=== PATIENT | female | born 1950 | race Caucasian/White ===

== ENCOUNTER 2016-11-29 01:51 | Emergency (ER) | payer MEDICARE ==
--- NOTE | 2016-11-29 03:09 | ED Physician Documentation ---
PD HPI HEENT - Stated complaint Stated Complaint: TOOTHACHE - Chief complaint Chief Complaint: Heent - History obtained from History obtained from: Patient - History of Present Illness Timing - onset: How many weeks ago (1-2) Timing - details: Intermittant Location: Tooth Improves: Nothing Worsens: Other (chewing) Recently seen: Emergency Dept (6 ED visits last month) - Additional information Additional information: patient complains of 1 to 2 weeks of dental pain. She says she was recently written a prescription for an antibiotic by a physician at a recent [facility] emergency department visit. She says that her daughter threw out this prescription, and that it was for an antibiotic. Patient does not know which antibiotic. Patient says because of a recent insurance change, she is having difficulty getting a dental appointment. She is requesting an antibiotic prescription, and specifically tells me she does not want pain medication. 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 HEENT: Tonsil/Adenoidectomy - Present Medications Home Medications: Ambulatory Orders Medication Instructions Recorded Confirmed FLUoxetine [PROzac] 60 mg PO DAILY 08/18/13 09/20/15 Azithromycin [Zithromax] 250 mg PO DAILY #6 tablet 09/20/15 Fluticasone [Flonase] 1 sprays RAO BID PRN #1 bottle 09/20/15 Amoxicillin 500 mg PO BID #9 capsule 11/29/16 - Allergies Allergies/Adverse Reactions: Allergies Allergy/AdvReac Type Severity Reaction Status Date / Time No Known Drug Allergies Allergy Verified 11/29/16 01:54 - Social History Does the pt smoke?: Yes Smoking Status: Current every day smoker Does the pt drink ETOH?: No Does the pt have substance abuse?: Yes - Immunizations Immunizations are current?: No - POLST Patient has POLST: No PD ED PE NORMAL - Vitals Vital signs reviewed: Yes - General General: Alert and oriented X 3, No acute distress, Well developed/nourished - HEENT HEENT: Moist mucous membranes PD ED PE EXPANDED - HEENT HEENT: Dental decay, Other (dentition is poor with extensive attrition. There is tenderness to percussion of the right maxillary first and second molars.) Results - Vitals Vitals: Vital Signs - 24 hr 11/29/16 11/29/16 01:54 03:24 Temperature 36.4 C L Heart Rate 91 80 Respiratory 16 17 Rate Blood Pressure 131/81 H 133/89 H O2 Saturation 98 98 Oxygen O2 Source Room air PD MEDICAL DECISION MAKING - ED course Complexity details: considered differential, d/w patient Departure - Departure Disposition: 01 Home, Self Care Clinical Impression: Pain, dental Condition: Good Instructions: ED Tooth Pain Prescriptions: Amoxicillin 500 mg PO BID #9 capsule Discharge Date/Time: 11/29/16 03:25
[2016-11-29] MEDS ORDERED: AMOXICILLIN 250 MG CAPSULE PO STA (03:17)
[2016-11-29] MEDS ORDERED: AMOXICILLIN 250 MG CAPSULE PO ONE (03:17)
[2016-11-29 03:26] VITALS: BP 133/89
--- NOTE | 2016-12-01 17:37 | ED Physician Documentation ---
ED Addendum - Addendum Addendum: 12/01/16 17:37 Patient lost the prescription, refill for amoxicillin, 500 mg 3 times a day #30 was given.
== END 2016-11-29 03:25 | disposition home or self-care (01) ==
LOC: ED 01:51
DX: K08.89 Other specified disorders of teeth and supporting structures (principal); K02.9 Dental caries, unspecified; F17.200 Nicotine dependence, unspecified, uncomplicated
CPT/HCPCS: 99283; A9270

== ENCOUNTER 2016-12-09 23:44 | Outpatient (CLI) | payer MEDICARE | END 2016-12-09 23:45 | disposition critical access hospital (66) | LOC: EMS 23:44 | PROVIDERS: ATTEND Surgery | DX: M25.569 Pain in unspecified knee (principal); B86 Scabies | CPT/HCPCS: A0425; A0429 ==

== ENCOUNTER 2016-12-09 23:53 | Emergency (ER) | payer MEDICARE ==
--- NOTE | 2016-12-09 23:53 | ED Physician Documentation ---
History of Present Illness - Stated complaint Stated Complaint: SCABIES/KNEE PN - History obtained from History obtained from: Patient, EMS - History of Present Illness Timing: Chronic - Additonal information Additional information: Patient c/o scabies which has been ongoing for months. Also c/o joint problems ( hands, knees) due to arthritis; this is a chronic problem for her. Review of Systems Cardiac: denies: Chest pain / pressure Respiratory: denies: Dyspnea Skin: reports: Rash Musculoskeletal: reports: Joint pain (multiple joints, chronic) PD PAST MEDICAL HISTORY - Past Medical History Past Medical History: Yes Other Past Medical History: scabies, arthritis - Present Medications Home Medications: Ambulatory Orders Medication Instructions Recorded Confirmed FLUoxetine [PROzac] 60 mg PO DAILY 08/18/13 09/20/15 Azithromycin [Zithromax] 250 mg PO DAILY #6 tablet 09/20/15 Fluticasone [Flonase] 1 sprays RAO BID PRN #1 bottle 09/20/15 Amoxicillin 500 mg PO BID #9 capsule 11/29/16 - Allergies Allergies/Adverse Reactions: Allergies Allergy/AdvReac Type Severity Reaction Status Date / Time No Known Drug Allergies Allergy Verified 11/29/16 01:54 PD ED PE NORMAL - Vitals Vital signs reviewed: Yes - General General: Alert and oriented X 3, No acute distress, Well developed/nourished - HEENT HEENT: Atraumatic, Moist mucous membranes - Neuro Neuro: Alert and oriented X 3 PD ED PE EXPANDED - Derm Derm: Other (erythematous papules, tracking: BUE, BLE) - Psych Psych: Other (tangential) Results - Vitals Vitals: Vital Signs - 24 hr 12/09/16 12/09/16 23:53 23:59 Temperature 36.7 C Heart Rate 64 Respiratory 18 Rate Blood Pressure 151/99 H O2 Saturation 97 Oxygen O2 Source Room air PD MEDICAL DECISION MAKING - ED course Complexity details: reviewed old records, considered differential, d/w patient ED course: Patient gives tangential answers and consistently has to be refocused to the question being asked or the topic being discussed. After my conversation with her, it was still not clear why she came to ED tonight. I asked her several times what I can do for her as an emergency physician, and she cannot provide any clear or consistent answers. She seems predominantly concerned with her ongoing scabies, but says she has several doses of permethrin as well as PO medication ( ED records indicate Ivermectin). When I discussed the typical efficacy of permethrin, she says she lives in a hotel and she believes the problem has to do with not having clean sheets and the laundry room being too far for her. I offered to write rx for permethrin, but, again, she insists she has "plenty of that stuff already" (per patient). ED note from her most recent visit there (12/02/16) indicates, in the HPI, that patient had, at that time, 2 unfilled prescriptions for permethrin, and that she has been seen at ED twice in October for scabies. This patient's JUDIE form indicates this is her 16th ED visit (combining [facility] and ED) over past 12 months. 6 ED visits last month (Oct, 2016) and 4 ED visits this month ([address] [facility] ED, 2 to ED). Departure - Departure Disposition: 01 Home, Self Care Clinical Impression: Scabies, Arthritis Condition: Good Instructions: ED Scabies Follow-Up: Andreina García MD [Provider Admit Priv/Credential] - Comments: You have indicated to me that you still have medications for your scabies. When used correctly as prescribed, the permethrin cream has the greatest effectiveness when compared to other treatments for scabies. Treatment failures are usually related to inadequate washing of towels, sheets, and clothing at the time of use of the permethrin. You have indicated to me that you have some difficulties with this step of the process, but, unfortunately, there is nothing I can do regarding this step. The other problems you are describing, such as arthritis, are best addressed by your primary care physician and not in the emergency department. Please contact your primary care physician in the morning to arrange for next available appointment. Discharge Date/Time: 12/10/16 00:20
[2016-12-09 23:58] VITALS: BP 151/99
== END 2016-12-10 00:20 | disposition home or self-care (01) ==
LOC: EDUNIT# → ED 23:53
DX: B86 Scabies (principal); M19.90 Unspecified osteoarthritis, unspecified site
CPT/HCPCS: 99283

== ENCOUNTER 2017-01-17 10:41 | Outpatient (CLI) | payer MEDICARE | END 2017-01-17 10:42 | disposition critical access hospital (66) | LOC: EMS 10:41 | PROVIDERS: ATTEND Surgery | DX: M25.511 Pain in right shoulder (principal); M25.562 Pain in left knee; M25.561 Pain in right knee; W01.0XXA Fall on same level from slipping, tripping and stumbling without subsequent striking against object, initial encounter; Y93.01 Activity, walking, marching and hiking; Y92.481 Parking lot as the place of occurrence of the external cause | CPT/HCPCS: A0425; A0429 ==

== ENCOUNTER 2017-01-17 10:58 | Emergency (ER) | payer MEDICARE ==
--- NOTE | 2017-01-17 12:15 | ED Physician Documentation ---
PD HPI UPPER EXT INJURY - Stated complaint Stated Complaint: FALL - Chief complaint Chief Complaint: Ext Problem - History obtained from History obtained from: Patient - History of Present Illness Location: Other (66-year-old woman, homeless, she was walking on the street today and tripped and fell forward injuring her right wrist and arm. She also hit her forehead but there was no loss of consciousness or headache. She is not anticoagulated. 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 : None HEENT: None Psych: Bipolar disorder, ADD/ADHD, Post traumatic stress disorder, Other Musculoskeletal: Other Derm: None Other Past Medical History: Arthritis, constipation - Past Surgical History 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 HEENT: Tonsil/Adenoidectomy - Present Medications Home Medications: Ambulatory Orders Medication Instructions Recorded Confirmed FLUoxetine [PROzac] 60 mg PO DAILY 08/18/13 01/17/17 Fluticasone [Flonase] 1 sprays RAO BID PRN #1 bottle 09/20/15 01/17/17 Dextroamphetamine/Amphetamine 20 mg PO TID 01/17/17 01/17/17 [Adderall 20 mg Tablet] HYDROcod/ACETAM 5/325 [[place] 5/325] 1 - 2 ea PO Q6H PRN #10 tablet 01/17/17 Ivermectin [Stromectol] 3 mg PO DAILY 01/17/17 01/17/17 - Allergies Allergies/Adverse Reactions: Allergies Allergy/AdvReac Type Severity Reaction Status Date / Time No Known Drug Allergies Allergy Verified 01/17/17 11:15 - Social History Does the pt smoke?: Yes Smoking Status: Current every day smoker Does the pt drink ETOH?: No Does the pt have substance abuse?: Yes - Immunizations Immunizations are current?: No - POLST Patient has POLST: No PD ED PE NORMAL - Vitals Vital signs reviewed: Yes - General General: Alert and oriented X 3, No acute distress - HEENT HEENT: PERRL, EOMI, Other (Very small hematoma right forehead, no tenderness) - Neck Neck: Supple, no meningeal sign, No bony TTP - Cardiac Cardiac: RRR, No murmur - Respiratory Respiratory: No respiratory distress, Clear bilaterally - Abdomen Abdomen: Non tender - Extremities Extremities: Other (Shallow abrasion over the top of the right shoulder with tenderness of the upper anterior glenohumeral joint. There are shallow skin tears over the dorsal right forearm and she has some tenderness and swelling at the wrist with mildly lost range of motion. Left upper extremity and lower extremities are nontender.) - Neuro Neuro: Alert and oriented X 3, Normal speech - Psych Psych: Normal mood, Normal affect Results - Vitals Vitals: Vital Signs - 24 hr 01/17/17 01/17/17 11:02 14:15 Temperature 36.5 C Heart Rate 76 68 Respiratory 18 20 Rate Blood Pressure 133/89 H 148/93 H O2 Saturation 97 97 Oxygen O2 Source Room air - Rads (name of study) Shoulder and R wrist XRs Radiology: EMP read contemporaneously (Shoulder neg, R scaphoid waist frx with distraction) Procedures - Splint (location) Right wrist Splint applied by: [employer] Type of splint: Fiberglass, Thumb spica Other: Patient tolerated well, No complications, Neurovascular intact PD MEDICAL DECISION MAKING - ED course ED course: After ground-level fall she has shoulder and wrist pain. She is found to have a right scaphoid waist fracture with distraction. Possibility of needing surgical intervention was discussed with her and follow-up with orthopedics was advised. She was placed in A thumb spica splint by the tech. Departure - Departure Disposition: 01 Home, Self Care Clinical Impression: Contusion of right arm Qualifiers: Encounter type: initial encounter Qualified Code(s): S40.021A - Contusion of right upper arm, initial encounter Fracture of scaphoid of right wrist Qualifiers: Encounter type: initial encounter Scaphoid bone location: middle third Fracture type: closed Fracture alignment: displaced Qualified Code(s): S62.021A - Displaced fracture of middle third of navicular [scaphoid] bone of right wrist , initial encounter for closed fracture Condition: Good Instructions: ED Sprain AC Joint, ED Sprain Wrist Follow-Up: [facility] [Provider Group] Prescriptions: HYDROcod/ACETAM 5/325 [[place] 5/325] 1 - 2 ea PO Q6H PRN #10 tablet PRN Reason: Pain Comments: Call the orthopedics office on Thursday for the next available appointment. Keep the splint on and dry until then, as discussed given that the fracture is displaced they may recommend surgery. Your blood pressure was elevated today on check into the emergency department. This does not mean that you have hypertension, it is a common phenomenon to come to the emergency department and have elevated blood pressure. I recommend that she see her primary care physician within the week to have it rechecked when you are feeling better. Discharge Date/Time: 01/17/17 14:15
--- NOTE | 2017-01-17 13:47 | XRAY Preliminary Report ---
Exam: XR Shoulder 3 View RT IMPRESSION: No fracture [facility] SITE ID: [id number]
--- NOTE | 2017-01-17 13:50 | XRAY Report ---
EXAM: RIGHT SHOULDER RADIOGRAPHY EXAM DATE: 01/17/2017 01:03 PM. CLINICAL HISTORY: Wrist/shoulder pain p fall. COMPARISON: Jusitne comparison made with right humerus radiograph of 02/28/2014. TECHNIQUE: 3 views. FINDINGS: Bones and joints: Motion artifact mildly degrades images. There is mild glenohumeral and acromioclavi cular osteoarthritis. No fracture. Soft tissues: The visualized hemithorax is unremarkable. No soft tissue swelling. IMPRESSION: No fracture [facility] Referring Provider Line: [phone] SITE ID: [id number]
--- NOTE | 2017-01-17 13:51 | XRAY Preliminary Report ---
Exam: XR Wrist 4 View RT IMPRESSION: Distracted right scaphoid waist fracture [facility] SITE ID: [id number]
--- NOTE | 2017-01-17 13:53 | XRAY Report ---
EXAM: RIGHT WRIST RADIOGRAPHY EXAM DATE: 01/17/2017 01:04 PM. CLINICAL HISTORY: Wrist/shoulder pain p fall. COMPARISON: None. TECHNIQUE: 4 views. FINDINGS: Bones: There is a comminuted scaphoid waist fracture, distracted by 4 mm.. Joints: Severe first carpometacarpal osteoarthritis. Soft Tissues: Moderate soft tissue swelling about the wrist IMPRESSION: Distracted right scaphoid waist fracture [facility] Referring Provider Line: [phone] SITE ID: [id number]
[2017-01-17 14:17] VITALS: BP 148/93
== END 2017-01-17 14:15 | disposition home or self-care (01) ==
LOC: EDUNIT# → ED 10:58
DX: S62.021A Displaced fracture of middle third of navicular [scaphoid] bone of right wrist, initial encounter for closed fracture (principal); S50.12XA Contusion of left forearm, initial encounter; W01.0XXA Fall on same level from slipping, tripping and stumbling without subsequent striking against object, initial encounter; Y93.01 Activity, walking, marching and hiking; Y92.488 Other paved roadways as the place of occurrence of the external cause; Z59.0 Homelessness; M19.90 Unspecified osteoarthritis, unspecified site; F17.200 Nicotine dependence, unspecified, uncomplicated; R03.0 Elevated blood-pressure reading, without diagnosis of hypertension
CPT/HCPCS: 29125; 99282; 99283

== ENCOUNTER 2017-01-23 10:02 | Emergency (ER) | payer MEDICARE ==
--- NOTE | 2017-01-23 11:23 | ED Physician Documentation ---
PD HPI SKIN - Stated complaint Stated Complaint: RASH/BLISTERS ALL OVER - Chief complaint Chief Complaint: Heent - History obtained from History obtained from: Patient - History of Present Illness Timing - duration: Months Timing - details: Still present Location: [place] Quality / character: Itchy Associated symptoms: No: Fever Contributing factors: Other (homelessness) Similar symptoms before: Diagnosis (Treated for scabies in June 2016.) Recently seen: Emergency Dept (She was seen here 6 days ago for evaluation after falling.) - Additional information Additional information: The patient is a 66-year-old homeless female who presents with itchy rash that has been getting progressively worse over several days to weeks. She was treated for scabies in June 2016, and states this is a recurrent episode. Review of her medical record reveals that she was seen here 6 days ago after falling on the street, and was evaluated for injuries involving her right upper extremity. She was treated with a thumb spica splint for a suspected scaphoid fracture of her right wrist. However, she states that in follow-up with the orthopedic surgeon she was told the wrist is not fractured. 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 : None HEENT: None Psych: Bipolar disorder, ADD/ADHD, Post traumatic stress disorder, Other Musculoskeletal: Other Derm: None - Past Surgical History 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 01/23/17 - Allergies Allergies/Adverse Reactions: Allergies Allergy/AdvReac Type Severity Reaction Status Date / Time No Known Drug Allergies Allergy Verified 01/17/17 11:15 - Living Situation Living Arrangement: reports: Homeless - Social History Does the pt smoke?: Yes Smoking Status: Current every day smoker Does the pt drink ETOH?: No Does the pt have substance abuse?: Yes - Immunizations Immunizations are current?: No - POLST Patient has POLST: No PD ED PE NORMAL - Vitals Vital signs reviewed: Yes (Initially hypertensive.) - General General: Alert and oriented X 3, Well developed/nourished, Other (Scratching at her arms.) - HEENT HEENT: Atraumatic - Neck Neck: No adenopathy - Cardiac Cardiac: RRR - Respiratory Respiratory: No respiratory distress - Derm Derm: Other ([place] in the webspaces of the fingers and the flexion creases of the wrists, as well as up the forearms and on the lower legs bilaterally, consistent with scabies. There is no evidence of cellulitis.) - Extremities Extremities: No: No edema Results - Vitals Vitals: Oxygen O2 Source Room air PD MEDICAL DECISION MAKING - ED course Complexity details: reviewed old records, considered differential, d/w patient ED course: The patient's presentation is consistent with scabies. She is being discharged with prescription for permethrin cream, with refill prescribed if needed for repeat treatment. I discussed with her the expected course of illness, the importance of outpatient follow-up, as well as potentially worrisome signs or symptoms that should prompt reevaluation in the emergency department. Departure - Departure Disposition: 01 Home, Self Care Clinical Impression: Scabies Condition: Stable Instructions: ED Scabies Follow-Up: Andreina García MD [Primary Care Provider] - Prescriptions: Permethrin 5% Cream [(None)] 60 gm TP ONCE #60 cream..g. Comments: Apply Permethrin cream as directed by package insert. Wash your clothing and bedding. Follow up with your primary physician within one week. Return to the emergency department if increasing rash, or otherwise worsening symptoms. Discharge Date/Time: 01/23/17 11:41
[2017-01-23 11:44] VITALS: BP 127/89
== END 2017-01-23 11:41 | disposition home or self-care (01) ==
LOC: ED 10:02
DX: B86 Scabies (principal); Z59.0 Homelessness; F17.200 Nicotine dependence, unspecified, uncomplicated
CPT/HCPCS: 99283

== ENCOUNTER 2017-01-27 21:10 | Outpatient (CLI) | payer MEDICARE | END 2017-01-27 21:11 | disposition critical access hospital (66) | LOC: EMS 21:10 | PROVIDERS: ATTEND Surgery | DX: F32.9 Major depressive disorder, single episode, unspecified (principal) | CPT/HCPCS: A0425; A0429 ==

== ENCOUNTER 2017-01-27 21:25 | Emergency (ER) | payer MEDICARE ==
[2017-01-27] MEDS ORDERED: OLANZapine 10 MG VIAL IM STA (21:33)
[2017-01-27] MEDS ORDERED: SODIUM CHLORIDE 0.9% 1,000 ML IV ONE (21:35)
[2017-01-27] MEDS ORDERED: LORazepam 2 MG/ML SYRINGE IVP STA ×2 (21:35→22:26)
[2017-01-27] MEDS ORDERED: OLANZapine 10 MG VIAL IM ONE (21:38)
[2017-01-27] MEDS ORDERED: WATER FOR INJECTION,STERILE 10 ML ONE (21:39)
[2017-01-27] MEDS ORDERED: LORazepam 2 MG/ML SYRINGE ONE ×2 (21:56→22:39)
[2017-01-27] MEDS ORDERED: SODIUM CHLORIDE FLUSH 0.9% 10 ML SYRINGE IVP ONE (21:56)
[2017-01-27 22:05] LABS: BASOPHILS # (AUTO) 0.1 10^3/uL (0.0-0.1); BASOPHILS % (AUTO) 1.3 %; EOSINOPHILS # (AUTO) 0.7 10^3/uL (0.0-0.7); EOSINOPHILS % (AUTO) 10.2 %; HCT - HEMATOCRIT 38.2 % (37.0-47.0); HGB - HEMOGLOBIN 12.6 g/dL (12.0-16.0); LYMPHOCYTES # (AUTO) 2.5 10^3/uL (1.5-3.5); LYMPHOCYTES % (AUTO) 35.1 %; MEAN CORPUSCULAR HEMOGLOBIN 30.2 pg (27.0-31.0); MEAN CORPUSCULAR VOLUME 91.4 fL (81.0-99.0); MEAN PLATELET VOLUME 8.9 fL (7.9-10.8); MONOCYTES # (AUTO) 0.5 10^3/uL (0.0-1.0); MONOCYTES % (AUTO) 7.6 %; NEUTROPHILS # (AUTO) 3.3 10^3/uL (1.5-6.6); NEUTROPHILS % (AUTO) 45.8 %; RED BLOOD COUNT 4.18 10^6/uL (4.20-5.40); RED CELL DISTRIBUTION WIDTH 13.8 % (12.0-15.0); UNCORRECTED WHITE BLOOD COUNT 7.2 x10^3/uL; WHITE BLOOD COUNT 7.2 x10^3/uL (4.8-10.8)
--- NOTE | 2017-01-27 22:05 | ED Physician Documentation ---
History of Present Illness - Stated complaint Stated Complaint: MHE - Chief complaint Chief Complaint: MHE - Additonal information Additional information: Patient is a 66-year-old female with history of PTSD and bipolar disorder. Looking at her medication list she apparently takes Adderall and Prozac. Apparently the patient is also homeless. I am unaware of any substance abuse issues other than the prescribed Adderall. The patient is brought in by EMS for psychiatric evaluation. She was found at a hotel in [place] creating a disturbance. The brief report I got was at the patient was running around hotel completely naked yelling and screaming at the top of her voice. The patient was uneventfully transferred from a hotel to your facility and she was agreeable to covering herself with her sheet. The patient was reticent to do lay down on the bed. Her speech was pressured and she exhibited flight of ideas and had delusions of persecution from police, the government, and attorneys. The patient's extreme behavior necessitated the temporary use of restraints. He called the police who assisted us in getting the patient into the bed uneventfully. At that point she was given a IM dose of Zyprexa 10 mg and restrained physically. Review of systems: For pertinent positive and negatives in the review of systems please see the history of present illness, otherwise all other systems have been reviewed and are negative. Dragon disclaimer: Parts of this medical record were created using voice recognition technology. Because of the inherent limitations of this system, occasional same sounding word substitutions do occur and persist despite proofreading. Please read the document for context. Review of Systems Psychiatric: reports: Hallucinations, Delusions, Insomnia PD PAST MEDICAL HISTORY - Past Medical History Cardiovascular: None Respiratory: Pneumonia Neuro: None Endocrine/Autoimmune: None GI: None CLINICAL PROGRAMMER: None : None HEENT: None Psych: Bipolar disorder, ADD/ADHD, Post traumatic stress disorder, Other Musculoskeletal: Other Derm: None - Past Surgical History Past Surgical History: Yes /CLINICAL PROGRAMMER: section HEENT: Tonsil/Adenoidectomy - Present Medications Home Medications: Ambulatory Orders Medication Instructions Recorded Confirmed FLUoxetine [PROzac] 60 mg PO DAILY 08/18/13 01/23/17 Fluticasone [Flonase] 1 sprays RAO BID PRN #1 bottle 09/20/15 01/23/17 Dextroamphetamine/Amphetamine 20 mg PO TID 01/17/17 01/23/17 [Adderall 20 mg Tablet] HYDROcod/ACETAM 5/325 [[place] 5/325] 1 - 2 ea PO Q6H PRN #10 tablet 01/17/1705/01 Ivermectin [Stromectol] 3 mg PO DAILY 01/17/17 01/23/17 Permethrin 5% Cream [(None)] 60 gm TP ONCE #60 cream..g. 01/23/17 - Allergies Allergies/Adverse Reactions: Allergies Allergy/AdvReac Type Severity Reaction Status Date / Time No Known Drug Allergies Allergy Verified 01/27/17 21:30 - Social History Does the pt smoke?: Yes Smoking Status: Current every day smoker Does the pt drink ETOH?: No Does the pt have substance abuse?: Yes - Immunizations Immunizations are current?: No - POLST Patient has POLST: No PD ED PE NORMAL - General General: Alert and oriented X 3, No acute distress, Well developed/nourished, Other (Large habitus female with tall stature) - HEENT HEENT: Atraumatic, PERRL, Pharynx benign, Dentition benign - Cardiac Cardiac: RRR, No murmur, No gallop, No rub - Respiratory Respiratory: No respiratory distress, Clear bilaterally - Abdomen Abdomen: Normal bowel sounds, Soft, Non tender, Non distended - Derm Derm: Normal color, Warm and dry - Extremities Extremities: No deformity, No tenderness to palpate, Normal ROM s pain, No edema , No calf tenderness / cord, Other - Neuro Neuro: Alert and oriented X 3, No motor deficit, No sensory deficit Results - Vitals Vitals: Vital Signs - 24 hr 01/27/17 01/27/17 01/27/17 22:00 22:11 22:32 Temperature 36.7 C Heart Rate 75 76 76 Respiratory 18 18 14 Rate Blood Pressure 130/75 113/62 133/83 H O2 Saturation 96 98 99 01/27/17 01/27/17 01/27/17 23:13 23:45 23:56 Temperature Heart Rate 77 78 76 Respiratory 20 19 16 Rate Blood Pressure 124/75 140/76 H 134/82 H O2 Saturation 95 95 97 01/28/17 01/28/17 01/28/17 02:39 04:54 06:31 Temperature Heart Rate 73 76 76 Respiratory 13 16 17 Rate Blood Pressure 143/110 H 130/86 H 138/78 H O2 Saturation 100 99 100 Oxygen O2 Source Room air - Labs Labs: Laboratory Tests 01/27/17 01/27/17 01/27/17 21:58 21:58 22:20 WBC 7.2 RBC 4.18 L Hgb 12.6 Hct 38.2 MCV 91.4 MCH 30.2 MCHC 33.0 RDW 13.8 Plt Count 232 MPV 8.9 Neut # 3.3 Lymph # 2.5 Gregg # 0.5 Eos # 0.7 Baso # 0.1 Absolute Nucleated RBC 0.00 Nucleated RBCs 0.0 Sodium 140 Potassium 4.9 Chloride 104 Carbon Dioxide 28 Anion Gap 8.0 BUN 14 Creatinine 0.7 Estimated GFR (MDRD) 83 L Glucose 121 H Calcium 10.4 H Total Bilirubin 0.4 AST 37 ALT 30 Alkaline Phosphatase 98 Total Protein 6.9 Albumin 4.2 Globulin 2.7 Albumin/Globulin Ratio 1.6 Lipase 27 Urine Color YELLOW Urine Clarity CLEAR Urine pH 6.0 Ur Specific [place] 1.025 Urine Protein NEGATIVE Urine Glucose (UA) NEGATIVE Urine Ketones NEGATIVE Urine Occult Blood NEGATIVE Urine Nitrite NEGATIVE Urine Bilirubin NEGATIVE Urine Urobilinogen 0.2 (NORMAL) Ur Leukocyte Esterase NEGATIVE Ur Microscopic Review NOT INDICATED Urine Culture Comments NOT INDICATED Salicylates < 6.0 Urine Opiates Screen NEGATIVE Ur Oxycodone Screen NEGATIVE Urine Methadone Screen NEGATIVE Ur Propoxyphene Screen NEGATIVE Acetaminophen < 10 L Ur Barbiturates Screen NEGATIVE Ur Tricyclics Screen NEGATIVE Ur Phencyclidine Scrn NEGATIVE Ur Amphetamine Screen POSITIVE H U Methamphetamines Scrn NEGATIVE U Benzodiazepines Scrn NEGATIVE Urine Cocaine Screen NEGATIVE U Cannabinoids Screen NEGATIVE Ethyl Alcohol < 5.0 PD MEDICAL DECISION MAKING - ED course Complexity details: re-evaluated patient ED course: This patient is a severely ill 66-year-old female brought in after she was found to the local hotel where she was found nude running around screaming.. The patient was equally disturbed. Her speech is very pressured with pressured speech and behavior consistent with acute bowen. The severity of her presentation necessitated physical and chemical restraint. She was given Zyprexa and 2 mg of Ativan liter fluid and has been watched here overnight. She did sleep for a couple hours but on waking up this morning she still appears manic. This patient will likely need inpatient admission to psychiatry facility. We tried to loosen the restraints several times over night but were partly but were not successful because of continued agitation. From a laboratory standpoint all her labs are normal. Her tox screens are positive for amphetamines but she is on Adderall chronically. Disposition transfer to psychiatric hospital new Clinical impression: 1. Acute bowen
[2017-01-27 22:20] LABS: ALBUMIN/GLOBULIN RATIO 1.6 (1.0-2.2); BILIRUBIN,TOTAL 0.4 mg/dL (0.2-1.0); BUN - BLOOD UREA NITROGEN 14 mg/dL (6-20); CALCIUM 10.4 mg/dL (8.5-10.3); CARBON DIOXIDE - CO2 28 mmol/L (21-32); CHLORIDE 104 mmol/L (101-111); CREATININE 0.7 mg/dL (0.4-1.0); GFR - MDRD 83 (>89); GLUCOSE 121 mg/dL (70-100); LIPASE 27 U/L (22-51); POTASSIUM 4.9 mmol/L (3.5-5.0); SALICYLATE < 6.0 mg/dL; SODIUM 140 mmol/L (135-145); TOTAL PROTEIN 6.9 g/dL (6.7-8.2)
[2017-01-27 22:21] LABS: ACETAMINOPHEN < 10 ug/mL (10-30)
[2017-01-27 22:28] LABS: BILIRUBIN,URINE NEGATIVE (NEGATIVE)
[2017-01-27 22:31] LABS: UA CHARGE (STRIP ONLY) YES; UR CULTURE IF IND NOT INDICATED
[2017-01-28] MEDS ORDERED: LORazepam 2 MG/ML SYRINGE IVP STA (13:58)
[2017-01-28] MEDS ORDERED: HALOPERIDOL 5 MG/ML VIAL IVP ONE (13:58)
[2017-01-28] MEDS ORDERED: LORazepam 2 MG/ML SYRINGE ONE (14:03)
[2017-01-28] MEDS ORDERED: HALOPERIDOL 5 MG/ML VIAL ONE (14:03)
[2017-01-28] MEDS ORDERED: KETAMINE 500 MG/10 ML VIAL IVP STA ×2 (14:39→18:37)
--- NOTE | 2017-01-28 14:42 | ED Physician Documentation ---
ED Addendum - Addendum Addendum: 01/28/17 14:41 On my arrival for shift today the [facility], Beena was here evaluating her. Patient was intermittently very agitated. Initially was responding to verbal de- escalation, but started fighting the restraints and needed some chemical sedation. Initially given Ativan 1 mg and Haldol 5 mg IV. About half an hour later this had really no effect on her and her agitation was continuing to increase. She was administered ketamine 100 mg IV. 01/28/17 17:46 [facility] arranged for a bed in [facility] completed, She did require a second dose of ketamine for recurrent agitation prior to transfer. Critical care time 48 minutes with frequent airway checks and close monitoring because of the volume of medications needed for behavioral agitation. Disposition transfer to psychiatric facility diagnosis psychosis
[2017-01-28] MEDS ORDERED: KETAMINE 500 MG/10 ML VIAL ONE ×2 (14:43→18:48)
[2017-01-28 19:24] VITALS: BP 156/90
== END 2017-01-28 19:11 ==
LOC: EDUNIT# → EDBD → ED 21:25
DX: F30.9 Manic episode, unspecified (principal); F31.9 Bipolar disorder, unspecified; F43.10 Post-traumatic stress disorder, unspecified; Z59.0 Homelessness; F17.200 Nicotine dependence, unspecified, uncomplicated
CPT/HCPCS: 36415; 51701; 80053; 80306; 80307; 81003; 83690; 85025; 93005; 96372; 96374; 96375; 96376; 99285; 99291; G0480; J2060; 80320; 80329; 81001; 87086

== ENCOUNTER 2017-02-26 02:27 | Outpatient (CLI) | payer MEDICARE | END 2017-02-26 02:28 | disposition critical access hospital (66) | LOC: EMS 02:27 | PROVIDERS: ATTEND Surgery | DX: R46.89 Other symptoms and signs involving appearance and behavior (principal) | CPT/HCPCS: A0425; A0429 ==

== ENCOUNTER 2017-02-26 02:39 | Emergency (ER) | payer MEDICARE ==
--- NOTE | 2017-02-26 04:10 | ED Physician Documentation ---
History of Present Illness - Stated complaint Stated Complaint: OFF MEDS, REFUSING TO LEAVE [facility] - Chief complaint Chief Complaint: MHE - History obtained from History obtained from: Patient, EMS - History of Present Illness Timing: Today Pain level now: 0 - Additonal information Additional information: patient reportedly was in [facility] yelling and loudly making racially and culturally insensitive remarks, and refused to leave when asked to. police arrived and they recommended transport to hospital as there was a concern she has not been taking her medications Review of Systems Constitutional: reports: Reviewed and negative Cardiac: reports: Reviewed and negative Respiratory: reports: Reviewed and negative GI: reports: Reviewed and negative Psychiatric: reports: Insomnia. denies: Depressed, Suicidal, Homicidal, Hallucinations, Delusions, Anxiety PD PAST MEDICAL HISTORY - Past Medical History Past Medical History: Yes Cardiovascular: None Respiratory: Pneumonia Neuro: None Endocrine/Autoimmune: None GI: None TRANSMISSION BUILDER: None : None HEENT: None Psych: Bipolar disorder, ADD/ADHD, Post traumatic stress disorder, Other Musculoskeletal: Other Derm: None - Past Surgical History Past Surgical History: Yes /TRANSMISSION BUILDER: section HEENT: Tonsil/Adenoidectomy - Present Medications Home Medications: Ambulatory Orders Medication Instructions Recorded Confirmed FLUoxetine [PROzac] 60 mg PO DAILY 08/18/13 02/26/17 Fluticasone [Flonase] 1 sprays RAO BID PRN #1 bottle 09/20/15 02/26/17 Dextroamphetamine/Amphetamine 20 mg PO TID 01/17/17 02/26/17 [Adderall 20 mg Tablet] HYDROcod/ACETAM 5/325 [[place] 5/325] 1 - 2 ea PO Q6H PRN #10 tablet 01/17/17 Ivermectin [Stromectol] 3 mg PO DAILY 01/17/17 02/26/17 Permethrin 5% Cream [(None)] 60 gm TP ONCE #60 cream..g. 01/23/17 02/26/17 - Allergies Allergies/Adverse Reactions: Allergies Allergy/AdvReac Type Severity Reaction Status Date / Time No Known Drug Allergies Allergy Verified 02/26/17 02:47 - Social History Does the pt smoke?: Yes Smoking Status: Current every day smoker Does the pt drink ETOH?: No Does the pt have substance abuse?: Yes - Immunizations Immunizations are current?: No - POLST Patient has POLST: No PD ED PE NORMAL - Vitals Vital signs reviewed: Yes - General General: Alert and oriented X 3, No acute distress, Well developed/nourished - HEENT HEENT: PERRL, EOMI - Cardiac Cardiac: RRR, No murmur - Respiratory Respiratory: No respiratory distress, Clear bilaterally - Derm Derm: Normal color, Warm and dry Results - Vitals Vitals: Vital Signs - 24 hr 02/26/17 08:17 Temperature 36.4 C L Heart Rate 83 Respiratory 16 Rate Blood Pressure 107/78 O2 Saturation 98 Oxygen O2 Source Room air PD MEDICAL DECISION MAKING - ED course Complexity details: considered differential, d/w patient ED course: in ED, patient is unusually calm, cooperative, and able to hold a somewhat productive conversation. However, she does get tangential and often needs redirecting. She sometimes does not provide clear answers, usually a result of verbosity with poverty of content. specifically, I could not get her to explain whether she is supposed to be on medications and whether she is taking what she should be taking. she complains that no one will prescribe her Adderall, says her doctor wants her taking zyprexa but she cannot tolerate side effects. she mentions, briefly, some recent substitutions of one medication for another, as well as being told to stop others. I consulted CATARINO to help determine whether she is taking meds appropriately and/or if she can be evaluated by one of her doctors that knows her medication list and can review this with her. CATARINO was able to arrange AM appointment with Dr. García Departure - Departure Disposition: 01 Home, Self Care Clinical Impression: Insomnia Condition: Good Instructions: ED Symptoms No Dx Follow-Up: Andreina García MD [Provider Admit Priv/Credential] - (Today as scheduled) Discharge Date/Time: 02/26/17 10:45
[2017-02-26 08:17] VITALS: BP 107/78
[2017-02-26] MEDS ORDERED: IBUPROFEN 600 MG TABLET PO STA (08:58)
[2017-02-26] MEDS ORDERED: IBUPROFEN 600 MG TABLET PO ONE (09:32)
== END 2017-02-26 10:45 | disposition home or self-care (01) ==
LOC: EDUNIT# → ED 02:39
DX: G47.00 Insomnia, unspecified (principal); F17.200 Nicotine dependence, unspecified, uncomplicated
CPT/HCPCS: 99283; A9270

== ENCOUNTER 2017-03-04 14:17 | Outpatient (CLI) | payer MEDICARE | END 2017-03-04 14:18 | disposition critical access hospital (66) | LOC: EMS 14:17 | PROVIDERS: ATTEND Surgery | DX: Z03.89 Encounter for observation for other suspected diseases and conditions ruled out (principal) | CPT/HCPCS: A0425; A0429 ==

== ENCOUNTER 2017-03-04 14:34 | Emergency (ER) | payer MEDICARE ==
[2017-03-04 14:56] VITALS: BP 155/88
[2017-03-04] MEDS ORDERED: OLANZapine ODT 5 MG TABLET TL ONE ×2 (18:10→18:17)
--- NOTE | 2017-03-04 18:12 | ED Physician Documentation ---
PD HPI MHE - Stated complaint Stated Complaint: MHE - Chief complaint Chief Complaint: MHE - History obtained from History obtained from: Patient - History of Present Illness Primary symptom: No: Suicidal ideation, Suicide attempt, Self harm - cut, Self harm - OD, Homicidal ideation Timing - onset: Chronic Pain level max: 0 Pain level now: 0 Contributing factors: Out of meds Recently seen: Not recently seen - Additional information Additional information: Patient is a 66-year-old female who states that she wanted a refill of her medications, because she forgot to go get them filled. Before I entered the room, she found them in her bag and would like to go get them filled. She currently does not have any complaints for me at this time. She states that she has a place to stay and will follow up with her doctor. Review of Systems Ten Systems: 10 systems reviewed and negative Constitutional: denies: Fever, Chills Nose: denies: Rhinorrhea / runny nose, Congestion Respiratory: denies: Cough GI: denies: Abdominal Pain, Nausea, Vomiting, Diarrhea Skin: denies: Rash Musculoskeletal: denies: Neck pain, Back pain Psychiatric: denies: Depressed, Suicidal, Homicidal, Hallucinations, Anxiety PD PAST MEDICAL HISTORY - Past Medical History Cardiovascular: None Respiratory: Pneumonia Neuro: None Endocrine/Autoimmune: None GI: None DIRECTOR COMMUNITY ORGANIZATION: None : None HEENT: None Psych: Bipolar disorder, ADD/ADHD, Post traumatic stress disorder, Other Musculoskeletal: Other Derm: None - Past Surgical History Past Surgical History: Yes /DIRECTOR COMMUNITY ORGANIZATION: section HEENT: Tonsil/Adenoidectomy - Present Medications Home Medications: Ambulatory Orders Medication Instructions Recorded Confirmed FLUoxetine [PROzac] 60 mg PO DAILY 08/18/13 02/26/17 Fluticasone [Flonase] 1 sprays RAO BID PRN #1 bottle 09/20/15 02/26/17 Dextroamphetamine/Amphetamine 20 mg PO TID 01/17/17 02/26/17 [Adderall 20 mg Tablet] HYDROcod/ACETAM 5/325 [[place] 5/325] 1 - 2 ea PO Q6H PRN #10 tablet 01/17/17 Ivermectin [Stromectol] 3 mg PO DAILY 01/17/17 02/26/17 Permethrin 5% Cream [(None)] 60 gm TP ONCE #60 cream..g. 01/23/17 02/26/17 - Allergies Allergies/Adverse Reactions: Allergies Allergy/AdvReac Type Severity Reaction Status Date / Time No Known Drug Allergies Allergy Verified 03/04/17 14:56 - Social History Does the pt smoke?: Yes Smoking Status: Current every day smoker Does the pt drink ETOH?: No Does the pt have substance abuse?: Yes - Immunizations Immunizations are current?: No - POLST Patient has POLST: No PD ED PE NORMAL - Vitals Vital signs reviewed: Yes - General General: Alert and oriented X 3, No acute distress - HEENT HEENT: Moist mucous membranes - Cardiac Cardiac: RRR - Respiratory Respiratory: No respiratory distress, Clear bilaterally - Abdomen Abdomen: Soft, Non tender, Non distended - Derm Derm: Warm and dry - Neuro Neuro: Alert and oriented X 3 - Psych Psych: Normal affect Results - Vitals Vitals: Oxygen O2 Source Room air PD MEDICAL DECISION MAKING - ED course Complexity details: d/w patient ED course: Patient found her prescriptions when she arrived in the emergency department and will go get them filled today. She has no acute emergency medical condition at this time. Not suicidal or homicidal. Patient will take the bus to the pharmacy. Patient counseled regarding signs and symptoms for which I believe and urgent re-evaluation would be necessary. Patient with good understanding of and agreement to plan and is comfortable going home at this time This document was made in part using voice recognition software. While efforts are made to proofread this document, sound alike and grammatical errors may occur. Departure - Departure Disposition: 01 Home, Self Care Clinical Impression: Psychiatric symptoms Condition: Good Instructions: ED Psychosis Follow-Up: your,doctor in 1 week [Other] Comments: Return if you worsen. Fill your prescriptions tonight. Your blood pressure was elevated today on check in to the emergency department. This does not mean that you have hypertension, it is a common phenomenon to check into the emergency department and have elevated blood pressure. I recommend that you see your primary care physician within the week to have it rechecked when you're feeling better. Discharge Date/Time: 03/04/17 18:25
== END 2017-03-04 18:25 | disposition home or self-care (01) ==
LOC: EDBD → EDUNIT# → ED 14:34
DX: F29 Unspecified psychosis not due to a substance or known physiological condition (principal); R03.0 Elevated blood-pressure reading, without diagnosis of hypertension
CPT/HCPCS: 99283; A9270; 80053; 80307; 80320; 80329; 83690; 85025

== ENCOUNTER 2017-03-05 17:24 | Outpatient (CLI) | payer MEDICARE | END 2017-03-05 17:25 | disposition critical access hospital (66) | LOC: EMS 17:24 | PROVIDERS: ATTEND Surgery | DX: R11.0 Nausea (principal); R42 Dizziness and giddiness | CPT/HCPCS: A0425; A0429 ==

== ENCOUNTER 2017-03-05 17:26 | Emergency (ER) | payer MEDICARE ==
[2017-03-05 17:39] VITALS: BP 143/79
--- NOTE | 2017-03-05 17:54 | ED Physician Documentation ---
History of Present Illness - Stated complaint Stated Complaint: SICK - Chief complaint Chief Complaint: General - History obtained from History obtained from: Patient - History of Present Illness Timing: Today Pain level max: 0 Pain level now: 0 - Additonal information Additional information: states she felt sick after smoking marijuana. States doesn't want care, just wants to go home and go to bed. Refuses any further history, exam or testing. Review of Systems Unable to obtain: Uncooperative PD PAST MEDICAL HISTORY - Past Medical History Cardiovascular: None Respiratory: Pneumonia Neuro: None Endocrine/Autoimmune: None GI: None CUPOLA CHARGER INSULATION: None : None HEENT: None Psych: Bipolar disorder, ADD/ADHD, Post traumatic stress disorder, Other Musculoskeletal: Other Derm: None - Past Surgical History Past Surgical History: Yes /CUPOLA CHARGER INSULATION: section HEENT: Tonsil/Adenoidectomy - Present Medications Home Medications: Ambulatory Orders Medication Instructions Recorded Confirmed FLUoxetine [PROzac] 60 mg PO DAILY 08/18/13 02/26/17 Fluticasone [Flonase] 1 sprays RAO BID PRN #1 bottle 09/20/15 02/26/17 Dextroamphetamine/Amphetamine 20 mg PO TID 01/17/17 02/26/17 [Adderall 20 mg Tablet] HYDROcod/ACETAM 5/325 [[place] 5/325] 1 - 2 ea PO Q6H PRN #10 tablet 01/17/17 Ivermectin [Stromectol] 3 mg PO DAILY 01/17/17 02/26/17 Permethrin 5% Cream [(None)] 60 gm TP ONCE #60 cream..g. 01/23/17 02/26/17 - Allergies Allergies/Adverse Reactions: Allergies Allergy/AdvReac Type Severity Reaction Status Date / Time No Known Drug Allergies Allergy Verified 03/04/17 14:56 - Social History Does the pt smoke?: Yes Smoking Status: Current every day smoker Does the pt drink ETOH?: No Does the pt have substance abuse?: Yes - Immunizations Immunizations are current?: No - POLST Patient has POLST: No PD ED PE NORMAL - Vitals Vital signs reviewed: Yes - General General: Alert and oriented X 3, No acute distress - HEENT HEENT: Moist mucous membranes - Neck Neck: Supple, no meningeal sign - Respiratory Respiratory: No respiratory distress - Derm Derm: Warm and dry - Neuro Neuro: Alert and oriented X 3 - Psych Psych: Normal mood Results - Vitals Vitals: Vital Signs - 24 hr 03/05/17 17:37 Temperature 35.6 C L Heart Rate 74 Respiratory 16 Rate Blood Pressure 143/79 H O2 Saturation 94 Oxygen O2 Source Room air PD MEDICAL DECISION MAKING - ED course Complexity details: considered differential, d/w patient ED course: Patient is a 66-year-old female who presents to the emergency department stating that she just wants to go home and go to bed. She does not want to be evaluated. Does not appear to be acutely psychotic at this time. No evidence of an acute emergency medical condition. Refuses any further evaluation. This document was made in part using voice recognition software. While efforts are made to proofread this document, sound alike and grammatical errors may occur. 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 Discharge Date/Time: 03/05/17 18:16
== END 2017-03-05 18:16 | disposition home or self-care (01) ==
LOC: EDUNIT# → ED 17:26
DX: F12.10 Cannabis abuse, uncomplicated (principal); F17.200 Nicotine dependence, unspecified, uncomplicated
CPT/HCPCS: 99282; 99283

== ENCOUNTER 2018-03-05 13:58 | Emergency (ER) | payer OTHER, MEDICARE ==
--- NOTE | 2018-03-05 14:07 | ED Physician Documentation ---
History of Present Illness - Stated complaint Stated Complaint: MHE - History obtained from History obtained from: Patient, Police - History of Present Illness Timing: Other (She presents accompanied by 's deputies. She has been in [facility] about a [facility] and [facility] and needs medical clearance for psychiatric evaluation. Her only complaint for me is ongoing neck pain on the left and she feels clicking in her neck when she moves. That has been going on for months or years. 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 SPECIALIST: None : None HEENT: None Psych: Bipolar disorder, ADD/ADHD, Post traumatic stress disorder, Other Musculoskeletal: Other Derm: None - Past Surgical History Past Surgical History: Yes /FLORAL DEPARTMENT SPECIALIST: section HEENT: Tonsil/Adenoidectomy - Present Medications Home Medications: Ambulatory Orders Medication Instructions Recorded Confirmed FLUoxetine [PROzac] 60 mg PO DAILY 08/18/13 02/26/17 Fluticasone [Flonase] 1 sprays RAO BID PRN #1 bottle 09/20/15 02/26/17 Dextroamphetamine/Amphetamine 20 mg PO TID 01/17/17 02/26/17 [Adderall 20 mg Tablet] HYDROcod/ACETAM 5/325 [[place] 5/325] 1 - 2 ea PO Q6H PRN #10 tablet 01/17/17 02/26/17 Ivermectin [Stromectol] 3 mg PO DAILY 01/17/17 02/26/17 Permethrin 5% Cream 60 gm TP ONCE #60 cream..g. 01/23/17 02/26/17 - Allergies Allergies/Adverse Reactions: Allergies Allergy/AdvReac Type Severity Reaction Status Date / Time No Known Drug Allergies Allergy Verified 03/04/17 14:56 - Social History Does the pt smoke?: Yes Smoking Status: Current every day smoker Does the pt drink ETOH?: No Does the pt have substance abuse?: Yes - Family History Family history: reports: Non contributory - Immunizations Immunizations are current?: No - POLST Patient has POLST: No PD ED PE NORMAL - Vitals Vital signs reviewed: Yes - General General: Alert and oriented X 3, No acute distress - HEENT HEENT: PERRL, EOMI - Neck Neck: Supple, no meningeal sign, No bony TTP - Cardiac Cardiac: RRR, No murmur - Respiratory Respiratory: No respiratory distress, Clear bilaterally - Abdomen Abdomen: Normal bowel sounds, Soft, Non tender - Derm Derm: Normal color, Warm and dry - Extremities Extremities: No edema, No calf tenderness / cord - Neuro Neuro: Alert and oriented X 3, Normal speech Eye Opening: Spontaneous Motor: Obeys Commands - Psych Psych: Normal mood, Normal affect Results - Vitals Vitals: Vital Signs - 24 hr 03/05/18 14:04 Temperature 36.9 C Heart Rate 101 H Respiratory 17 Rate Blood Pressure 151/101 H O2 Saturation 100 Oxygen O2 Source Room air - EKG (time done) 1409 Rate: Rate (enter#) (84) Rhythm: NSR [place]: Normal Intervals: Normal [place] QRS: Normal Ischemia: Non specific changes Computer interpretation: Agree with computer - Labs Labs: Laboratory Tests 03/05/18 03/05/18 03/05/18 14:15 14:15 14:15 WBC 4.3 L RBC 4.12 L Hgb 12.8 Hct 37.3 MCV 90.5 MCH 31.0 MCHC 34.3 RDW 14.0 Plt Count 180 MPV 8.8 Neut # (Auto) 2.7 Lymph # (Auto) 1.0 L [place] # (Auto) 0.3 Eos # (Auto) 0.3 Baso # (Auto) 0.0 Absolute Nucleated RBC 0.00 Nucleated RBC % 0.1 Sodium 137 Potassium 3.8 Chloride 104 Carbon Dioxide 26 Anion Gap 7.0 BUN 14 Creatinine 0.7 Estimated GFR (MDRD) 83 L Glucose 188 H Calcium 10.1 Phosphorus 2.1 L Magnesium 2.0 Total Bilirubin 0.6 AST 26 ALT 19 Alkaline Phosphatase 75 Total Creatine Kinase 78 Total Protein 7.0 Albumin 4.5 Globulin 2.5 Albumin/Globulin Ratio 1.8 Lipase 30 TSH 1.70 Urine Color Urine Clarity Urine pH Ur Specific [place] Urine Protein Urine Glucose (UA) Urine Ketones Urine Occult Blood Urine Nitrite Urine Bilirubin Urine Urobilinogen Ur Leukocyte Esterase Ur Microscopic Review Urine Culture Comments Salicylates < 6.0 Acetaminophen < 10 L Ethyl Alcohol < 5.0 03/05/18 14:50 WBC RBC Hgb Hct MCV MCH MCHC RDW Plt Count MPV Neut # (Auto) Lymph # (Auto) [place] # (Auto) Eos # (Auto) Baso # (Auto) Absolute Nucleated RBC Nucleated RBC % Sodium Potassium Chloride Carbon Dioxide Anion Gap BUN Creatinine Estimated GFR (MDRD) Glucose Calcium Phosphorus Magnesium Total Bilirubin AST ALT Alkaline Phosphatase Total Creatine Kinase Total Protein Albumin Globulin Albumin/Globulin Ratio Lipase TSH Urine Color YELLOW Urine Clarity CLEAR Urine pH 6.0 Ur Specific [place] >=1.030 H Urine Protein NEGATIVE Urine Glucose (UA) NEGATIVE Urine Ketones [place]ACE Urine Occult Blood NEGATIVE Urine Nitrite NEGATIVE Urine Bilirubin NEGATIVE Urine Urobilinogen 0.2 (NORMAL) Ur Leukocyte Esterase NEGATIVE Ur Microscopic Review NOT INDICATED Urine Culture Comments NOT INDICATED Salicylates Acetaminophen Ethyl Alcohol PD MEDICAL DECISION MAKING - ED course ED course: She is brought here for medical clearance for psychiatric evaluation and she is medically clear for that. - Sepsis Event Vital Signs: Vital Signs - 24 hr 03/05/18 14:04 Temperature 36.9 C Heart Rate 101 H Respiratory 17 Rate Blood Pressure 151/101 H O2 Saturation 100 Oxygen O2 Source Room air Departure - Departure Disposition: 01 Home, Self Care Clinical Impression: Medical clearance for psychiatric admission, Psychiatric symptoms Condition: Stable Comments: She is being [facility] pending [facility] evaluation and attempts at placement.
[2018-03-05 14:11] VITALS: BP 151/101
[2018-03-05 14:21] LABS: BASOPHILS % (AUTO) 1.1 %; EOSINOPHILS # (AUTO) 0.3 10^3/uL (0.0-0.7); EOSINOPHILS % (AUTO) 6.8 %; HGB - HEMOGLOBIN 12.8 g/dL (12.0-16.0); LYMPHOCYTES % (AUTO) 23.1 %; MEAN CORPUSCULAR HGB CONC 34.3 g/dL (32.0-36.0); MEAN CORPUSCULAR VOLUME 90.5 fL (81.0-99.0); MEAN PLATELET VOLUME 8.8 fL (7.9-10.8); MONOCYTES # (AUTO) 0.3 10^3/uL (0.0-1.0); NEUTROPHILS # (AUTO) 2.7 10^3/uL (1.5-6.6); PLT - PLATELET COUNT 180 10^3/uL (130-450); RED BLOOD COUNT 4.12 10^6/uL (4.20-5.40); WHITE BLOOD COUNT 4.3 x10^3/uL (4.8-10.8)
[2018-03-05 14:37] LABS: ALBUMIN 4.5 g/dL (3.2-5.5); ALBUMIN/GLOBULIN RATIO 1.8 (1.0-2.2); ALKALINE PHOSPHATASE 75 IU/L (42-121); ALT ALANINE AMINOTRANSFERASE 19 IU/L (10-60); AST ASPARTATE AMINOTRANSFERASE 26 IU/L (10-42); BILIRUBIN,TOTAL 0.6 mg/dL (0.2-1.0); BUN - BLOOD UREA NITROGEN 14 mg/dL (6-20); CALCIUM 10.1 mg/dL (8.5-10.3); CARBON DIOXIDE - CO2 26 mmol/L (21-32); CHLORIDE 104 mmol/L (101-111); CK- CREATINE KINASE 78 IU/L (22-269); CREATININE 0.7 mg/dL (0.4-1.0); GFR - MDRD 83 (>89); GLUCOSE 188 mg/dL (70-100); LIPASE 30 U/L (22-51); PHOSPHORUS 2.1 mg/dL (2.5-4.6); SALICYLATE < 6.0 mg/dL; SODIUM 137 mmol/L (135-145)
[2018-03-05 14:40] LABS: ACETAMINOPHEN < 10 ug/mL (10-30)
[2018-03-05 14:53] LABS: MUDS CUTOFF CONCENTRATIONS CUTOFF CONC BELOW:
[2018-03-05 14:59] LABS: BILIRUBIN,URINE NEGATIVE (NEGATIVE); GLUCOSE, URINE (UA) NEGATIVE (NEGATIVE); KETONES,URINE (UA) TRACE mg/dL (NEGATIVE); LEUKOCYTE ESTERASE, URINE NEGATIVE (NEGATIVE); NITRITE,URINE NEGATIVE (NEGATIVE); OCCULT BLOOD,URINE NEGATIVE (NEGATIVE); PROTEIN,URINE NEGATIVE (NEGATIVE); UROBILINOGEN,URINE 0.2 (NORMAL) E.U./dL (NORMAL)
[2018-03-05 15:01] LABS: CLARITY,URINE CLEAR (CLEAR)
[2018-03-05 15:07] LABS: AMPHETAMINE SCREEN,URINE NEGATIVE (NEGATIVE); BENZODIAZEPINES SCREEN, URINE POSITIVE (NEGATIVE); COCAINE SCREEN URINE NEGATIVE (NEGATIVE); METHADONE SCREEN, URINE NEGATIVE (NEGATIVE); METHAMPHETAMINES SCREEN, URINE NEGATIVE (NEGATIVE); OPIATE SCREEN, URINE NEGATIVE (NEGATIVE); OXYCODONE SCREEN, URINE NEGATIVE (NEGATIVE); PROPOXYPHENE SCREEN, URINE NEGATIVE (NEGATIVE); TRICYCLIC ANTIDEPRESSANT,URINE NEGATIVE (NEGATIVE)
== END 2018-03-05 15:08 | disposition home or self-care (01) ==
LOC: EDUNIT# → ED 13:58
DX: Z04.6 Encounter for general psychiatric examination, requested by authority (principal); F31.9 Bipolar disorder, unspecified; F90.9 Attention-deficit hyperactivity disorder, unspecified type; F43.10 Post-traumatic stress disorder, unspecified; M54.2 Cervicalgia; F17.200 Nicotine dependence, unspecified, uncomplicated
CPT/HCPCS: 36415; 80053; 80306; 80307; 80320; 80329; 81001; 81003; 82550; 83690; 83735; 84100; 84443; 85025; 87086; 93005; 99283

== ENCOUNTER 2018-03-25 21:56 | Outpatient (CLI) | payer MEDICARE | END 2018-03-25 21:57 | disposition critical access hospital (66) | LOC: EMS 21:56 | PROVIDERS: ATTEND Surgery | DX: R11.0 Nausea (principal) | CPT/HCPCS: A0425; A0429 ==

== ENCOUNTER 2018-03-25 22:00 | Emergency (ER) | payer MEDICARE ==
--- NOTE | 2018-03-25 22:03 | ED Physician Documentation ---
History of Present Illness - Stated complaint Stated Complaint: DIZZY, NAUSEOUS - History obtained from History obtained from: Patient - History of Present Illness Timing: Today Improved by: lying still Worsened by: movement - Additonal information Additional information: c/o several hours of nausea without vomiting, dizziness, generalized weakness. BIBA. Patient feels this is due to using too much THC oil this evening. She was recently in shelter, then transferred to inpatient psychiatric facility (3 week stay) and then discharged; she is homeless, currently staying in a hotel. EMS was called out for a fall; patient says she was hungry, went to store to get something to eat but it was closed and, when walking back into the hotel, she fell. She denies LOC, denies any new pain (bilateral knee pain is chronic). Review of Systems Constitutional: reports: Fatigue. denies: Fever, Chills, Sweats Eyes: reports: Reviewed and negative Cardiac: reports: Reviewed and negative Respiratory: reports: Reviewed and negative GI: reports: Nausea. denies: Abdominal Pain, Abdominal Swelling, Vomiting : denies: Dysuria, Frequency Musculoskeletal: reports: Joint pain (chronic bilateral knee pain) Neurologic: reports: Generalized weakness. denies: Focal weakness, Numbness, Confused, Altered mental status, Headache PD PAST MEDICAL HISTORY - Past Medical History Cardiovascular: None Respiratory: Pneumonia Endocrine/Autoimmune: None GI: None PHYSICAL SCIENCE PROFESSOR: None : None HEENT: None Psych: Bipolar disorder, ADD/ADHD, Post traumatic stress disorder, Other Musculoskeletal: Other Derm: None - Past Surgical History Past Surgical History: Yes /PHYSICAL SCIENCE PROFESSOR: section HEENT: Tonsil/Adenoidectomy - Present Medications Home Medications: Ambulatory Orders Medication Instructions Recorded Confirmed FLUoxetine [PROzac] 60 mg PO DAILY 08/18/13 02/26/17 Fluticasone [Flonase] 1 sprays RAO BID PRN #1 bottle 09/20/15 02/26/17 Dextroamphetamine/Amphetamine 20 mg PO TID 01/17/17 02/26/17 [Adderall 20 mg Tablet] HYDROcod/ACETAM 5/325 [[place] 5/325] 1 - 2 ea PO Q6H PRN #10 tablet 01/17/17 02/26/17 Ivermectin [Stromectol] 3 mg PO DAILY 01/17/17 02/26/17 Permethrin 5% Cream 60 gm TP ONCE #60 cream..g. 01/23/17 02/26/17 Ondansetron Odt [Zofran] 4 mg TL Q6H PRN #10 tablet 03/26/18 - Allergies Allergies/Adverse Reactions: Allergies Allergy/AdvReac Type Severity Reaction Status Date / Time No Known Drug Allergies Allergy Verified 03/04/17 14:56 - Social History Does the pt smoke?: Yes Smoking Status: Current every day smoker Does the pt drink ETOH?: No Does the pt have substance abuse?: Yes - Immunizations Immunizations are current?: No - POLST Patient has POLST: No PD ED PE NORMAL - Vitals Vital signs reviewed: Yes - General General: Alert and oriented X 3, No acute distress, Well developed/nourished - HEENT HEENT: PERRL, EOMI, Moist mucous membranes - Neck Neck: Supple, no meningeal sign - Cardiac Cardiac: RRR, No murmur - Respiratory Respiratory: No respiratory distress, Clear bilaterally - Abdomen Abdomen: Soft, Non tender - Derm Derm: Normal color - Extremities Extremities: No deformity, No edema - Neuro Neuro: Alert and oriented X 3, personal care assistant 2-12 intact, No motor deficit, No sensory deficit, Normal speech Eye Opening: Spontaneous Motor: Obeys Commands Verbal: Oriented GCS Score: 15 Results - Vitals Vitals: Oxygen O2 Source Room air PD MEDICAL DECISION MAKING - ED course Complexity details: reviewed old records, reviewed results, re-evaluated patient, considered differential, d/w patient ED course: On reevaluation, patient is in NAD and reports feeling much better. She reports nausea has resolved and is comfortable with d/c home. Departure - Departure Disposition: 01 Home, Self Care Clinical Impression: Weakness, Nausea Condition: Good Instructions: ED Weakness [facility]O Follow-Up: ERICH BARKER ARNP [Primary Care Provider] - Prescriptions: Ondansetron Odt [Zofran] 4 mg TL Q6H PRN #10 tablet PRN Reason: Nausea / Vomiting Discharge Date/Time: 03/26/18 00:15
[2018-03-25] MEDS ORDERED: SODIUM CHLORIDE 0.9% 1,000 ML IV STA (22:19)
[2018-03-25] MEDS ORDERED: ONDANSETRON 4 MG/2 ML VIAL IVP STA (22:19)
[2018-03-25 22:44] LABS: BASOPHILS # (AUTO) 0.1 10^3/uL (0.0-0.1); BASOPHILS % (AUTO) 1.2 %; EOSINOPHILS # (AUTO) 0.5 10^3/uL (0.0-0.7); EOSINOPHILS % (AUTO) 10.4 %; HGB - HEMOGLOBIN 11.7 g/dL (12.0-16.0); LYMPHOCYTES % (AUTO) 21.8 %; MEAN CORPUSCULAR HEMOGLOBIN 30.4 pg (27.0-31.0); MEAN CORPUSCULAR VOLUME 92.1 fL (81.0-99.0); MEAN PLATELET VOLUME 8.2 fL (7.9-10.8); MONOCYTES # (AUTO) 0.3 10^3/uL (0.0-1.0); MONOCYTES % (AUTO) 5.9 %; NEUTROPHILS # (AUTO) 2.9 10^3/uL (1.5-6.6); NEUTROPHILS % (AUTO) 60.7 %; PLT - PLATELET COUNT 198 10^3/uL (130-450); RED BLOOD COUNT 3.86 10^6/uL (4.20-5.40); RED CELL DISTRIBUTION WIDTH 14.4 % (12.0-15.0); WHITE BLOOD COUNT 4.8 x10^3/uL (4.8-10.8)
[2018-03-25 22:53] LABS: ALBUMIN 4.2 g/dL (3.2-5.5); ALBUMIN/GLOBULIN RATIO 1.8 (1.0-2.2); ALKALINE PHOSPHATASE 76 IU/L (42-121); ALT ALANINE AMINOTRANSFERASE 25 IU/L (10-60); AST ASPARTATE AMINOTRANSFERASE 33 IU/L (10-42); BILIRUBIN,TOTAL < 0.2 mg/dL (0.2-1.0); BUN - BLOOD UREA NITROGEN 14 mg/dL (6-20); CALCIUM 9.9 mg/dL (8.5-10.3); CARBON DIOXIDE - CO2 27 mmol/L (21-32); CHLORIDE 105 mmol/L (101-111); CREATININE 0.6 mg/dL (0.4-1.0); GFR - MDRD 99 (>89); GLUCOSE 123 mg/dL (70-100); LIPASE 16 U/L (22-51); SODIUM 136 mmol/L (135-145); TOTAL PROTEIN 6.5 g/dL (6.7-8.2)
[2018-03-26 00:13] VITALS: BP 120/64
== END 2018-03-26 00:15 | disposition home or self-care (01) ==
LOC: EDUNIT# → ED 22:00
DX: R53.1 Weakness (principal); R11.0 Nausea; F17.200 Nicotine dependence, unspecified, uncomplicated
CPT/HCPCS: 36415; 80053; 80320; 83690; 85025; 96361; 96374; 99283

== ENCOUNTER 2018-04-06 10:08 | Emergency (ER) | payer MEDICARE ==
[2018-04-06 10:18] VITALS: BP 140/94
--- NOTE | 2018-04-06 10:39 | ED Physician Documentation ---
PD HPI BACK PAIN - Stated complaint Stated Complaint: NECK/HEAD PX,MHE,KNEE PX,WEEK,CP - Chief complaint Chief Complaint: General - History obtained from History obtained from: Patient - History of Present Illness Timing - onset: How many days ago (she has had neck pain for several days to a week. She is feeling more anxious and poorer thought process for few weeks since being discontinued from her Adderall from last admission to Psych facility ([facility]). She tried to get Rx refill from her PCP office (called the office and talked with nurse), and they did not want to give refill. Patient here with complaints of neck pain from twisting injury, ongoing knee pains with left one particularly feeling like it gives out, and having trouble with focusing thoughts. She says she has chronic suicidal ideation and has those continued recently as well. No plan nor actions taken.) Timing - duration: Days Timing - details: Gradual onset, Still present, Waxing and waning Location: Upper (left paracervical area) Quality: Pain, Aching Associated symptoms: No: Fever, Weakness, Numbness, Incontinent of urine Worsened by: Movement Similar symptoms before: Has not had sx before (regarding neck pain, but has had the knees pain and the history of manic behavior and ADHD.) Review of Systems Constitutional: denies: Fever Nose: denies: Rhinorrhea / runny nose, Congestion Throat: denies: Sore throat Cardiac: denies: Chest pain / pressure Respiratory: denies: Cough GI: denies: Abdominal Pain, Nausea, Vomiting, Diarrhea : denies: Dysuria Skin: denies: Rash, Lesions Musculoskeletal: reports: Extremity pain (both knees, but more to the left, with feeling of knee swelling at times, and some giving out - having to use cane to support her gait on that side.) Neurologic: reports: Generalized weakness. denies: Focal weakness, Numbness, Altered mental status, Headache, Head injury Psychiatric: reports: Depressed, Suicidal (ideation without plan nor action). denies: Homicidal PD PAST MEDICAL HISTORY - Past Medical History Cardiovascular: None Respiratory: Pneumonia Neuro: None Endocrine/Autoimmune: None GI: None POLY AREA SUPERVISOR: None : None HEENT: None Psych: Bipolar disorder, ADD/ADHD, Post traumatic stress disorder, Other Musculoskeletal: Other Derm: None - Past Surgical History Past Surgical History: Yes /POLY AREA SUPERVISOR: section HEENT: Tonsil/Adenoidectomy - Present Medications Home Medications: Ambulatory Orders Medication Instructions Recorded Confirmed FLUoxetine [PROzac] 60 mg PO DAILY 08/18/13 02/26/17 Fluticasone [Flonase] 1 sprays RAO BID PRN #1 bottle 09/20/15 02/26/17 Dextroamphetamine/Amphetamine 20 mg PO TID 01/17/17 02/26/17 [Adderall 20 mg Tablet] HYDROcod/ACETAM 5/325 [[place] 5/325] 1 - 2 ea PO Q6H PRN #10 tablet 01/17/17 02/26/17 Ivermectin [Stromectol] 3 mg PO DAILY 01/17/17 02/26/17 Permethrin 5% Cream 60 gm TP ONCE #60 cream..g. 01/23/17 02/26/17 Ondansetron Odt [Zofran] 4 mg TL Q6H PRN #10 tablet 03/26/18 - Allergies Allergies/Adverse Reactions: Allergies Allergy/AdvReac Type Severity Reaction Status Date / Time No Known Drug Allergies Allergy Verified 04/06/18 10:17 - Social History Does the pt smoke?: Yes Smoking Status: Current every day smoker Does the pt drink ETOH?: No Does the pt have substance abuse?: Yes - Immunizations Immunizations are current?: No - POLST Patient has POLST: No PD ED PE NORMAL - Vitals Vital signs reviewed: Yes - General General: Alert and oriented X 3, Well developed/nourished - HEENT HEENT: Atraumatic, Ears normal (appear normal; left bag making machine tender for the ear speculum.), Pharynx benign - Neck Neck: Supple, no meningeal sign, No bony TTP, No JVD, Other (tender left lateral neck muscles without deformity. ) - Cardiac Cardiac: RRR, No murmur - Respiratory Respiratory: Clear bilaterally - Female Female : Deferred - Rectal Rectal: Deferred - Back Back: No CVA TTP, No spinal TTP - Derm Derm: Normal color, Warm and dry, No rash - Extremities Extremities: Other (no effusion. Knee passive ROM without crepitance either side. Slight laxity left knee with varus stress. No pain. No pain nor laxity with cruciate testing. Right without pain nor laxity on ligament testing. No crepitance nor clik either knee. ) - Neuro Neuro: Alert and oriented X 3, No motor deficit, No sensory deficit, Normal speech (somewhat tangential but not pressured.) Eye Opening: Spontaneous Motor: Obeys Commands Verbal: Oriented GCS Score: 15 Results - Vitals Vitals: Vital Signs - 24 hr 04/06/18 10:15 Temperature 36.5 C Heart Rate 81 Respiratory 18 Rate Blood Pressure 140/94 H O2 Saturation 98 Oxygen O2 Source Room air - Labs Labs: Laboratory Tests 04/06/18 04/06/18 14:08 14:08 WBC 5.1 RBC 3.91 L Hgb 12.0 Hct 35.8 L MCV 91.6 MCH 30.8 MCHC 33.6 RDW 14.6 Plt Count 214 MPV 8.4 Neut # (Auto) 2.9 Lymph # (Auto) 1.4 L [place] # (Auto) 0.3 Eos # (Auto) 0.6 Baso # (Auto) 0.0 Absolute Nucleated RBC 0.00 Nucleated RBC % 0.0 Sodium 140 Potassium 3.8 Chloride 105 Carbon Dioxide 27 Anion Gap 8.0 BUN 14 Creatinine 0.6 Estimated GFR (MDRD) 99 Glucose 106 H Calcium 10.0 Magnesium 2.2 Total Bilirubin 0.4 AST 33 ALT 35 Alkaline Phosphatase 102 Total Protein 7.1 Albumin 4.2 Globulin 2.9 Albumin/Globulin Ratio 1.4 Lipase 22 Salicylates < 6.0 Acetaminophen < 10 L Ethyl Alcohol < 5.0 - Rads (name of study) cervical CT Radiology: Prelim report reviewed (arthritic changes, no acute problems. ) PD MEDICAL DECISION MAKING - ED course Complexity details: reviewed old records, reviewed results, re-evaluated patient (She remains confrontational verbally but can control her yelling when we address it. She is often insulting and blames it on the lack of Adderall. There is no pressuring of speech but there is some tangentiality. She does a couple of times since has had "what about my suicidality". When asked about it though she states she is often feeling depressed and suicidal chronically and does not have any current plan for it. Social work is in to talk to her and feels that he may be able to get voluntary hospitalization and so we will ask her again to allow blood draws and a urine test that we can progress with that.), considered differential (She has a history of some quynh and ADHD. She states her current symptoms relate to having been discontinued off her Adderall when she was recently hospitalized at [facility]. Her primary care office did not want to renew the medications apparently based on that. She is having diffuse pains and her main pain is in left side of her neck. She is also having some knee pains with walking and it is causing her to be off balance mechanically and she feels her knees are giving out on her at times.), d/w patient, d/w production consultant (adult day care worker talked with the patient to give her in formation regarding psychiatric follow-up. Apparently [facility] does take the patient's insurance and she can follow-up there. Number and information I believe was provided by social work. The social media marketing analyst was also going to see if she might be able to get voluntary hospitalization for the patient and so we did initiate blood tests and urine tests for medical clearance. However the patient said she was not happy with the care here and wanted to just leave. She is not acutely suicidal and has no plan. She is having some manic symptoms but is still able to have goal oriented behavior and self control. I do not see grounds for involuntary detainment. Allowed her to leave the department.) ED course: At this point I felt if a psychiatrist to taken her off of her Adderall at the last admission and her primary care did not want to refill it, that I think a psychiatrist would be best to evaluate whether to resume it and I did not want to write a prescription for her Adderall. Patient was unhappy with my choice on this. She expressed as such. I told her she did not need to yelling swear at me and she told me that that was my choice as I was making her do that by not giving her her prescription. Departure - Departure Disposition: ED [place] Clinical Impression: Acute neck pain, Quynh ADHD Qualifiers: Attention deficit-hyperactivity disorder type: predominantly hyperactive Qualified Code(s): F90.1 - Attention-deficit hyperactivity disorder, predominantly hyperactive type Knee meniscus pain Qualifiers: Laterality: unspecified laterality Qualified Code(s): M25.569 - Pain in unspecified knee Condition: Stable Record reviewed to determine appropriate education?: Yes Discharge Date/Time: 04/06/18 14:35
[2018-04-06] MEDS ORDERED: ACETAMINOPHEN 325 MG TABLET PO STA (11:20)
[2018-04-06] MEDS ORDERED: METHOCARBAMOL 500 MG TABLET PO STA (11:20)
--- NOTE | 2018-04-06 12:27 | CT Report ---
Reason: mid cervical pain; no noted injury Procedure Date: 04/06/2018 Accession Number: [id number] / [id number] Procedure: CT - Cervical Spine W/O CPT Code: FULL RESULT: EXAM: CT CERVICAL SPINE WITHOUT CONTRAST DATE: 04/06/2018 12:05 PM. HISTORY: Mid cervical pain; no noted injury. COMPARISONS: HEAD W/O 04/11/2014 4:48 PM CERVICAL SPINE COMPLETE 02/28/2014 3:46 PM. TECHNIQUE: Thin-section axial images were acquired of the cervical spine without contrast. Post-processing: Coronal and sagittal reformats. Other: None. In accordance with CT protocol optimization, one or more of the following dose reduction techniques were utilized for this exam: automated exposure control, adjustment of mA and/or KV based on patient size, or use of iterative reconstructive technique. FINDINGS: Alignment: No scoliosis or spondylolisthesis. Bones: No fracture or bone lesion. Interspace Levels/Facets: Mild osteoarthritis at the pre-dens interval. Disk height loss and endplate osteophyte formation indicating degenerative disk disease which is moderate at C3-C4 and severe at C4-C5, C5-C6, and C6-C7. There is multilevel mild to moderate bilateral cervical facet osteoarthritis particularly in the upper cervical spine. There is also variable mild bilateral uncovertebral joint hypertrophy. There is bony foraminal stenosis which is mild on the left at C2-C3, moderate on the right at C3-C4, mild on the left at C4-C5, mild on the right at C5-C6. Musculature: Normal. No fatty atrophy. Other: The paravertebral and prevertebral soft tissues are unremarkable. The lung apices are clear. IMPRESSION: 1. Severe multilevel cervical degenerative disk disease. 2. Multilevel mild to moderate bilateral cervical facet osteoarthritis greatest in the upper cervical spine. There is also mild multilevel uncovertebral joint osteoarthritis. 3. Multilevel mild bilateral cervical foraminal stenosis as described above. [facility]
[2018-04-06] MEDS ORDERED: OLANZapine ODT 5 MG TABLET TL ONE (13:47)
[2018-04-06] MEDS ORDERED: NAPROXEN 250 MG TABLET PO STA (13:47)
[2018-04-06 14:14] LABS: BASOPHILS % (AUTO) 0.6 %; EOSINOPHILS # (AUTO) 0.6 10^3/uL (0.0-0.7); EOSINOPHILS % (AUTO) 10.8 %; LYMPHOCYTES # (AUTO) 1.4 10^3/uL (1.5-3.5); LYMPHOCYTES % (AUTO) 26.3 %; MEAN CORPUSCULAR HEMOGLOBIN 30.8 pg (27.0-31.0); MEAN CORPUSCULAR HGB CONC 33.6 g/dL (32.0-36.0); MEAN CORPUSCULAR VOLUME 91.6 fL (81.0-99.0); MEAN PLATELET VOLUME 8.4 fL (7.9-10.8); MONOCYTES # (AUTO) 0.3 10^3/uL (0.0-1.0); MONOCYTES % (AUTO) 5.3 %; NEUTROPHILS # (AUTO) 2.9 10^3/uL (1.5-6.6); PLT - PLATELET COUNT 214 10^3/uL (130-450); RED BLOOD COUNT 3.91 10^6/uL (4.20-5.40); RED CELL DISTRIBUTION WIDTH 14.6 % (12.0-15.0); WHITE BLOOD COUNT 5.1 x10^3/uL (4.8-10.8)
[2018-04-06 14:30] LABS: ACETAMINOPHEN < 10 ug/mL (10-30); ALBUMIN 4.2 g/dL (3.2-5.5); ALBUMIN/GLOBULIN RATIO 1.4 (1.0-2.2); ALKALINE PHOSPHATASE 102 IU/L (42-121); ALT ALANINE AMINOTRANSFERASE 35 IU/L (10-60); AST ASPARTATE AMINOTRANSFERASE 33 IU/L (10-42); BILIRUBIN,TOTAL 0.4 mg/dL (0.2-1.0); BUN - BLOOD UREA NITROGEN 14 mg/dL (6-20); CARBON DIOXIDE - CO2 27 mmol/L (21-32); CHLORIDE 105 mmol/L (101-111); CREATININE 0.6 mg/dL (0.4-1.0); GFR - MDRD 99 (>89); GLUCOSE 106 mg/dL (70-100); LIPASE 22 U/L (22-51); MAGNESIUM 2.2 mg/dL (1.7-2.8); SALICYLATE < 6.0 mg/dL; SODIUM 140 mmol/L (135-145); TOTAL PROTEIN 7.1 g/dL (6.7-8.2)
== END 2018-04-06 14:35 | disposition left against medical advice (07) ==
LOC: ED 10:08
DX: M54.2 Cervicalgia (principal); F30.9 Manic episode, unspecified; F90.1 Attention-deficit hyperactivity disorder, predominantly hyperactive type; M25.562 Pain in left knee; M25.561 Pain in right knee; R07.9 Chest pain, unspecified; F17.200 Nicotine dependence, unspecified, uncomplicated; R51 Headache
CPT/HCPCS: 36415; 72125; 80053; 83690; 83735; 84443; 85025; 99283; 99284; A9270; 80307; 80320; 80329